=== PATIENT | male | born 1990 | race African-American/Black ===

== ENCOUNTER 2020-03-08 17:34 | Emergency (ER) | payer MEDICAID ==
[~2020-03-08] VITALS: Ht 180.3 cm; Wt 63.0 kg
[2020-03-08] MEDS ORDERED: IBUPROFEN 600MG TABLET PO ONE (18:45)
[2020-03-08 20:14] VITALS: BP 128/74
== END 2020-03-08 20:15 | disposition home or self-care (01) ==
LOC: ER 17:34
DX: S52.135A Nondisplaced fracture of neck of left radius, initial encounter for closed fracture (principal); W18.39XA Other fall on same level, initial encounter; Y93.89 Activity, other specified; Y92.89 Other specified places as the place of occurrence of the external cause; Y99.8 Other external cause status
CPT/HCPCS: 73030; 73060; 73070; 73090; 73100; 99284